=== PATIENT | male | born 1960 | race Caucasian/White ===

== ENCOUNTER 2018-05-15 04:46 | Inpatient (IN) | payer OTHER ==
[2018-05-14 13:34] LABS: BASOPHILS # (AUTO) 0.05 x10^3/uL (0-0.1); BASOPHILS % (AUTO) 1 % (0-1); EOSINOPHILS # (AUTO) 0.17 x10^3/uL (0-0.4); EOSINOPHILS % (AUTO) 2 % (1-7); LYMPHOCYTES % (AUTO) 21 % (22-44); MD NO; MEAN CORPUSCULAR HEMOGLOBIN 29.6 pg (27.5-34.5); MEAN CORPUSCULAR HGB CONC 34.1 g/dL (33.2-36.2); MEAN CORPUSCULAR VOLUME 86.7 fL (81-97); MEAN PLATELET VOLUME 8.6 fL (7.4-10.4); MONOCYTES # (AUTO) 0.59 x10^3/uL (0.2-0.8); MONOCYTES % (AUTO) 8 % (2-9); NEUTROPHILS # (AUTO) 5.18 x10^3/uL (1.8-6.8); NEUTROPHILS % (AUTO) 68 % (42-75); PLATELET COUNT 220 x10^3/uL (130-400); RED BLOOD COUNT 5.24 x10^6/uL (4.38-5.82); RED CELL DISTRIBUTION WIDTH 13.9 % (9.4-14.8)
[2018-05-14 13:44] LABS: INTERNATIONAL NORMALIZED RATIO 1.1 (0.93-1.1); PROTHROMBIN TIME 11.4 Seconds (9.6-11.5)
[2018-05-14 13:46] LABS: ALANINE AMINOTRANSFERASE 54 U/L (12-78); ALBUMIN 4.1 g/dL (3.4-5.0); ANION GAP 10 mmol/L (5-15); CALCIUM 9.1 mg/dL (8.5-10.1); CHLORIDE 105 mmol/L (98-107); CREATININE 1.03 mg/dL (0.7-1.3)
[2018-05-14 13:48] LABS: ALKALINE PHOSPHATASE 100 U/L (45-117); BILIRUBIN,TOTAL 0.5 mg/dL (0.2-1.0); TOTAL PROTEIN 8.7 g/dL (6.4-8.2)
[2018-05-14 14:11] LABS: HEMOGLOBIN A1C 6.6 % (4.2-6.3)
[2018-05-14 14:19] LABS: MICROSCOPIC NOT IND
[~2018-05-15] VITALS: Ht 175.3 cm; Wt 84.3 kg
[~2018-05-15 04:46] MED LIST: ASPI-496 PO; ATOR20TA PO; CHOL500015 PO; UBID100C24 PO
[2018-05-15] MEDS ORDERED: ALBUMIN HUMAN 5% 500 ML IV PRN (05:00)
[2018-05-15] MEDS ORDERED: CHLORHEXIDINE 15 ML UDC MM SCH (05:30)
[2018-05-15] MEDS ORDERED: INSULIN LISPRO 100 UNITS/ML, PEN SQ-INSULIN SCH (05:30)
[2018-05-15] MEDS ORDERED: DO NOT GIVE MC SCH (05:30)
[2018-05-15 05:44] VITALS: BP_SYST 127; BP_SYST 134; BP_DIAS 78; BP_DIAS 84
[2018-05-15] MEDS ORDERED: METOPROLOL TARTRATE 25 MG TABLET PO ONE (06:00)
[2018-05-15] MEDS ORDERED: PAPAVERINE 30 MG/ML, 2ML ONE (06:19)
[2018-05-15] MEDS ORDERED: HEPARIN 1,000 UNITS/ML, 10ML ONE (06:20)
[2018-05-15] MEDS ORDERED: FENTANYL PF 250 MCG/5ML ONE ×4 (06:35→06:36)
[2018-05-15] MEDS ORDERED: MIDAZOLAM 10MG/2 ML ONE (06:35)
[2018-05-15] MEDS ORDERED: ROCURONIUM 10MG/ML,5ML ONE ×2 (06:40)
[2018-05-15] MEDS ORDERED: PROPOFOL 10 MG/ML, 20ML ONE ×2 (06:40→06:41)
[2018-05-15] MEDS ORDERED: AMINOCAPROIC ACID 250 MG/ML, 20ML ONE (06:40)
[2018-05-15] MEDS ORDERED: VANCOMYCIN 1,200 MG in SODIUM CHLORIDE 0.9% 250 ML IV PRN (07:30)
[2018-05-15] MEDS ORDERED: DEXMEDETOMIDINE 200 MCG in SODIUM CHLORIDE 0.9% 48 ML IV SCH (07:30)
[2018-05-15] MEDS ORDERED: EPINEPHRINE 2 MG in SODIUM CHLORIDE 0.9% 248 ML IV SCH (07:30)
[2018-05-15] MEDS ORDERED: CEFUROXIME 1.5 GM in SODIUM CHLORIDE 0.9% 50 ML IVPB PRN (07:30)
[2018-05-15] MEDS ORDERED: REGULAR INSULIN 62.5 UNITS in SODIUM CHLORIDE 0.9% 249.375 ML IV PRN ×2 (07:30→10:07)
[2018-05-15] MEDS ORDERED: PHENYLEPHRINE 10 MG in SODIUM CHLORIDE 0.9% 249 ML IV PRN ×2 (07:30→10:07)
[2018-05-15] MEDS ORDERED: POTASSIUM CHLORIDE 80 MEQ, SODIUM BICARBONATE 8.4% 10 MEQ, MAGNESIUM SULFATE 0.5 GM, LI... IV PRN (07:30)
[2018-05-15] MEDS ORDERED: MANNITOL PMX 20% 500 ML IVPB PRN (07:30)
[2018-05-15] MEDS ORDERED: MUPIROCIN OINT 2%, 22GM TP SCH (09:00)
[2018-05-15] MEDS: DOCUSATE 100 MG CAPSULE PO SCH ×2 (09:00→20:17)
[2018-05-15] MEDS: SODIUM CHLORIDE FLUSH 10ML SYR IVF SCH ×3 (09:00→20:18)
[2018-05-15] MEDS ORDERED: SODIUM BICARBONATE 1 MEQ/ML, 50ML VIAL ONE (10:04)
[2018-05-15] MEDS ORDERED: LIDOCAINE 2% 100MG/5ML SYRINGE ONE (10:04)
[2018-05-15] MEDS ORDERED: ALBUMIN HUMAN 25% 50 ML ONE (10:04)
[2018-05-15] MEDS ORDERED: HEPARIN 1,000 UNITS/ML, 30ML ONE (10:04)
[2018-05-15] MEDS ORDERED: VASOPRESSIN 50 UNIT in SODIUM CHLORIDE 0.9% 247.5 ML IV PRN (10:07)
[2018-05-15] MEDS ORDERED: LACTATED RINGERS 1,000 ML IV SCH (10:07)
[2018-05-15] MEDS ORDERED: DEXMEDETOMIDINE 200 MCG in SODIUM CHLORIDE 0.9% 48 ML IV PRN (10:07)
[2018-05-15] MEDS ORDERED: SODIUM CHLORIDE 0.9% 1,000 ML IV PRN (10:07)
[2018-05-15] MEDS ORDERED: DOBUTAMINE 250 MG in SODIUM CHLORIDE 0.9% 230 ML IV PRN (10:07)
[2018-05-15] MEDS ORDERED: NITROGLYCERIN/D5W PMX 250 ML IV PRN (10:07)
[2018-05-15] MEDS ORDERED: morphine SULFATE 10 MG/ML, 1ML IVPush PRN (10:30)
[2018-05-15] MEDS ORDERED: BISACODYL 5 MG EC TABLET PO PRN (10:30)
[2018-05-15] MEDS ORDERED: DEXTROSE 50%, 50ML SYRINGE IVPush PRN (10:30)
[2018-05-15] MEDS ORDERED: INSULIN REGULAR 100 UNITS/ML, 3ML VIAL IVPush PRN (10:30)
[2018-05-15] MEDS ORDERED: SODIUM BICARB 8.4%, 50ML SYRINGE IV PRN (10:30)
[2018-05-15] MEDS ORDERED: ACETAMINOPHEN 325 MG TABLET PO PRN (10:30)
[2018-05-15] MEDS ORDERED: PROCHLORPERAZINE 5 MG/ML, 2ML IVPush PRN (10:30)
[2018-05-15] MEDS ORDERED: BISACODYL 10 MG SUPP PR PRN (10:30)
[2018-05-15] MEDS ORDERED: GLUCAGON 1 MG IM PRN (10:30)
[2018-05-15] MEDS ORDERED: ONDANSETRON 2MG/ML, 2ML IVPush PRN (10:30)
[2018-05-15] MEDS ORDERED: DEXTROSE 4 GM TAB.CHEW PO PRN (10:30)
[2018-05-15] MEDS ORDERED: EPINEPHRINE 2 MG in SODIUM CHLORIDE 0.9% 248 ML IV PRN (10:30)
[2018-05-15] MEDS ORDERED: LACTATED RINGERS 1,000 ML IV PRN (10:30)
[2018-05-15] MEDS ORDERED: MIDAZOLAM 1 MG/ML, 5ML IVPush PRN (10:30)
[2018-05-15] MEDS ORDERED: ACETAMINOPHEN 650 MG SUPP PR PRN (10:30)
[2018-05-15 10:37] LABS: GLUCOSE BY BLOOD GAS ANALYZER 118 mg/dL (70-110); HEMOGLOBIN BY BLOOD GAS ANALYZ 11.7 g/dL (14.0-18.0); POTASSIUM BY BLOOD GAS ANALYZR 3.8 mmol/L (3.6-5.5)
[2018-05-15] MEDS: KSCALE TO 4.5 IV SCH ×3 (10:59→22:36)
[2018-05-15] MEDS ORDERED: POTASSIUM CHLORIDE 30 MEQ in SODIUM CHLORIDE 0.9% 100 ML IV ONE (11:00)
[2018-05-15] MEDS: INSULIN LISPRO 100 UNITS/ML, PEN SQ-INSULIN SCH ×3 (11:00→20:19)
[2018-05-15] MEDS ORDERED: MORPHINE SULFATE 4 MG/ML, 1ML ONE (11:17)
[2018-05-15] MEDS: MAGNESIUM SULFATE 1 GM in SODIUM CHLORIDE 0.9% 50 ML IVPB SCH (11:51)
[2018-05-15] MEDS: HYDROcodone/APAP 10/325 MG TABLET PO PRN ×3 (14:32→23:46)
[2018-05-15] MEDS: CEFUROXIME 1.5 GM in SODIUM CHLORIDE 0.9% 50 ML IVPB SCH (17:23)
[2018-05-15] MEDS ORDERED: POTASSIUM CHLORIDE PMX 100 ML IV ONE (17:30)
[2018-05-15] MEDS: OXYcodone IR 5MG TABLET PO PRN (18:15)
[2018-05-15] MEDS ORDERED: VANCOMYCIN 1,200 MG in SODIUM CHLORIDE 0.9% 250 ML IVPB ONE (19:00)
[2018-05-15] MEDS: MUPIROCIN OINT 2%, 22GM NAS SCH (20:17)
[2018-05-16] MEDS: OXYcodone IR 5MG TABLET PO PRN ×5 (02:51→20:07)
[2018-05-16] MEDS: KSCALE TO 4.5 IV SCH (04:30)
[2018-05-16 05:26] VITALS: BP 111/68
[2018-05-16 05:49] LABS: ALBUMIN 3.5 g/dL (3.4-5.0); ANION GAP 8 mmol/L (5-15); CHLORIDE 110 mmol/L (98-107); CREATININE 0.69 mg/dL (0.7-1.3)
[2018-05-16 05:51] LABS: INTERNATIONAL NORMALIZED RATIO 1.22 (0.93-1.1); PROTHROMBIN TIME 12.6 Seconds (9.6-11.5)
[2018-05-16 06:03] LABS: BASOPHILS # (AUTO) 0.03 x10^3/uL (0-0.1); BASOPHILS % (AUTO) 0 % (0-1); EOSINOPHILS % (AUTO) 0 % (1-7); LYMPHOCYTES % (AUTO) 12 % (22-44); MD NO; MEAN CORPUSCULAR HEMOGLOBIN 29.3 pg (27.5-34.5); MEAN CORPUSCULAR HGB CONC 33.8 g/dL (33.2-36.2); MEAN CORPUSCULAR VOLUME 86.6 fL (81-97); MEAN PLATELET VOLUME 8.9 fL (7.4-10.4); MONOCYTES # (AUTO) 0.92 x10^3/uL (0.2-0.8); MONOCYTES % (AUTO) 9 % (2-9); NEUTROPHILS # (AUTO) 8.58 x10^3/uL (1.8-6.8); NEUTROPHILS % (AUTO) 79 % (42-75); PLATELET COUNT 140 x10^3/uL (130-400); RED BLOOD COUNT 3.81 x10^6/uL (4.38-5.82)
[2018-05-16] MEDS: CEFUROXIME 1.5 GM in SODIUM CHLORIDE 0.9% 50 ML IVPB SCH (06:14)
[2018-05-16] MEDS ORDERED: MAGNESIUM HYDROXIDE 8%, 30ML UDC PO PRN (08:00)
[2018-05-16] MEDS: DOCUSATE 100 MG CAPSULE PO SCH ×2 (08:11→20:07)
[2018-05-16] MEDS: CHLORHEXIDINE 15 ML UDC PO SCH (08:13)
[2018-05-16] MEDS: METOPROLOL TARTRATE 25 MG TABLET PO/NG SCH ×2 (08:14→20:10)
[2018-05-16] MEDS: SODIUM CHLORIDE FLUSH 10ML SYR IVF SCH ×5 (08:15→20:21)
[2018-05-16] MEDS: MUPIROCIN OINT 2%, 22GM NAS SCH ×2 (08:15→20:12)
[2018-05-16] MEDS: ASPIRIN 81 MG TABLET EC PO SCH (08:17)
[2018-05-16] MEDS: INSULIN LISPRO 100 UNITS/ML, PEN SQ-INSULIN SCH ×4 (08:32→20:15)
[2018-05-16] MEDS: MAGNESIUM SULFATE 1 GM in SODIUM CHLORIDE 0.9% 50 ML IVPB SCH (11:07)
[2018-05-16 18:57] VITALS: BP 144/79
[2018-05-16 19:55] VITALS: BP 123/72
[2018-05-16] MEDS: ATORVASTATIN 20 MG TABLET PO SCH (20:07)
[2018-05-17] MEDS: OXYcodone IR 5MG TABLET PO PRN ×5 (00:27→20:48)
[2018-05-17 00:42] VITALS: BP 105/62
[2018-05-17 05:00] LABS: ANION GAP 7 mmol/L (5-15); CALCIUM 7.9 mg/dL (8.5-10.1); CHLORIDE 106 mmol/L (98-107); CREATININE 0.78 mg/dL (0.7-1.3)
[2018-05-17 05:01] LABS: BASOPHILS # (AUTO) 0.03 x10^3/uL (0-0.1); BASOPHILS % (AUTO) 0 % (0-1); EOSINOPHILS # (AUTO) 0.03 x10^3/uL (0-0.4); EOSINOPHILS % (AUTO) 0 % (1-7); LYMPHOCYTES # (AUTO) 1.66 x10^3/uL (1-3.4); LYMPHOCYTES % (AUTO) 14 % (22-44); MD NO; MEAN CORPUSCULAR HEMOGLOBIN 29.9 pg (27.5-34.5); MEAN CORPUSCULAR HGB CONC 33.9 g/dL (33.2-36.2); MEAN CORPUSCULAR VOLUME 88.1 fL (81-97); MEAN PLATELET VOLUME 9.1 fL (7.4-10.4); MONOCYTES # (AUTO) 1.12 x10^3/uL (0.2-0.8); MONOCYTES % (AUTO) 10 % (2-9); NEUTROPHILS # (AUTO) 8.93 x10^3/uL (1.8-6.8); NEUTROPHILS % (AUTO) 76 % (42-75); PLATELET COUNT 124 x10^3/uL (130-400); RED BLOOD COUNT 3.67 x10^6/uL (4.38-5.82)
[2018-05-17 05:04] LABS: INTERNATIONAL NORMALIZED RATIO 1.18 (0.93-1.1); PROTHROMBIN TIME 12.2 Seconds (9.6-11.5)
[2018-05-17] MEDS: INSULIN LISPRO 100 UNITS/ML, PEN SQ-INSULIN SCH ×4 (07:00→20:47)
[2018-05-17 07:15] VITALS: BP 115/72
[2018-05-17] MEDS ORDERED: FUROSEMIDE 20 MG/2 ML IV SCH (09:00)
[2018-05-17] MEDS: POTASSIUM CHLORIDE 10 MEQ TABLET.ER PO SCH (10:35)
[2018-05-17] MEDS: FUROSEMIDE 20 MG TABLET PO SCH (10:35)
[2018-05-17] MEDS: METOPROLOL TARTRATE 25 MG TABLET PO/NG SCH ×2 (10:35→20:48)
[2018-05-17] MEDS: DOCUSATE 100 MG CAPSULE PO SCH ×2 (10:35→20:47)
[2018-05-17] MEDS: ASPIRIN 81 MG TABLET EC PO SCH (10:35)
[2018-05-17] MEDS: ENOXAPARIN 40 MG/0.4 ML SQ SCH (10:35)
[2018-05-17] MEDS: MUPIROCIN OINT 2%, 22GM NAS SCH ×2 (10:36→20:50)
[2018-05-17] MEDS: SODIUM CHLORIDE FLUSH 10ML SYR IVF SCH ×6 (10:36→20:52)
[2018-05-17] MEDS: CHLORHEXIDINE 15 ML UDC PO SCH (10:36)
[2018-05-17 14:05] VITALS: BP 106/68
[2018-05-17] MEDS: MAGNESIUM SULFATE 1 GM in SODIUM CHLORIDE 0.9% 50 ML IVPB SCH (17:41)
[2018-05-17 19:08] VITALS: BP 125/75
[2018-05-17] MEDS: ATORVASTATIN 20 MG TABLET PO SCH (20:48)
[2018-05-18] MEDS: OXYcodone IR 5MG TABLET PO PRN ×2 (00:03→04:11)
[2018-05-18 01:42] VITALS: BP 111/69
[2018-05-18 05:56] LABS: BASOPHILS # (AUTO) 0.02 x10^3/uL (0-0.1); BASOPHILS % (AUTO) 0 % (0-1); EOSINOPHILS # (AUTO) 0.14 x10^3/uL (0-0.4); EOSINOPHILS % (AUTO) 1 % (1-7); LYMPHOCYTES % (AUTO) 13 % (22-44); MD NO; MEAN CORPUSCULAR HEMOGLOBIN 29.3 pg (27.5-34.5); MEAN CORPUSCULAR HGB CONC 33.8 g/dL (33.2-36.2); MEAN CORPUSCULAR VOLUME 86.8 fL (81-97); MEAN PLATELET VOLUME 8.6 fL (7.4-10.4); MONOCYTES # (AUTO) 0.99 x10^3/uL (0.2-0.8); MONOCYTES % (AUTO) 10 % (2-9); NEUTROPHILS # (AUTO) 7.62 x10^3/uL (1.8-6.8); NEUTROPHILS % (AUTO) 76 % (42-75); PLATELET COUNT 150 x10^3/uL (130-400); RED BLOOD COUNT 3.81 x10^6/uL (4.38-5.82)
[2018-05-18 05:57] LABS: CHLORIDE 104 mmol/L (98-107)
[2018-05-18 06:08] LABS: ANION GAP 9 mmol/L (5-15); CALCIUM 8.2 mg/dL (8.5-10.1); CREATININE 0.79 mg/dL (0.7-1.3)
[2018-05-18 07:12] VITALS: BP 110/67
[2018-05-18] MEDS ORDERED: POTASSIUM CHLORIDE 20 MEQ TAB.ER.PRT PO ONE (07:30)
[2018-05-18] MEDS: INSULIN LISPRO 100 UNITS/ML, PEN SQ-INSULIN SCH (08:42)
[2018-05-18] MEDS: POTASSIUM CHLORIDE 10 MEQ TABLET.ER PO SCH ×2 (08:42)
[2018-05-18] MEDS: SODIUM CHLORIDE FLUSH 10ML SYR IVF SCH ×6 (08:43→21:09)
[2018-05-18] MEDS: MUPIROCIN OINT 2%, 22GM NAS SCH ×2 (08:43→19:44)
[2018-05-18] MEDS: CLOPIDOGREL 75 MG TABLET PO SCH (08:44)
[2018-05-18] MEDS: CHLORHEXIDINE 15 ML UDC PO SCH (08:44)
[2018-05-18] MEDS: METOPROLOL TARTRATE 25 MG TABLET PO/NG SCH ×2 (08:44→19:44)
[2018-05-18] MEDS: DOCUSATE 100 MG CAPSULE PO SCH ×2 (08:44→19:54)
[2018-05-18] MEDS: ENOXAPARIN 40 MG/0.4 ML SQ SCH (08:44)
[2018-05-18] MEDS: FUROSEMIDE 20 MG TABLET PO SCH (08:45)
[2018-05-18] MEDS: ASPIRIN 81 MG TABLET EC PO SCH (08:45)
[2018-05-18] MEDS: HYDROcodone/APAP 10/325 MG TABLET PO PRN (10:25)
[2018-05-18 13:24] VITALS: BP 121/75
[2018-05-18] MEDS: HYDROcodone/APAP 5/325 TABLET PO PRN ×2 (16:29→21:07)
[2018-05-18 18:28] VITALS: BP 122/76
[2018-05-18 19:31] VITALS: BP 130/83
[2018-05-18] MEDS: ATORVASTATIN 20 MG TABLET PO SCH (19:44)
[2018-05-18] MEDS ORDERED: CLOP75TA PO (22:26)
[2018-05-18] MEDS ORDERED: METO25TA35 PO/NG (22:26)
[2018-05-18] MEDS ORDERED: HYDR-3307 PO (22:26)
[2018-05-19] MEDS: OXYcodone IR 5MG TABLET PO PRN (00:18)
[2018-05-19 00:20] VITALS: BP 136/86
[2018-05-19] MEDS: HYDROcodone/APAP 5/325 TABLET PO PRN ×3 (04:38→09:01)
[2018-05-19 04:55] LABS: BASOPHILS # (AUTO) 0.06 x10^3/uL (0-0.1); BASOPHILS % (AUTO) 1 % (0-1); EOSINOPHILS % (AUTO) 3 % (1-7); LYMPHOCYTES % (AUTO) 19 % (22-44); MD NO; MEAN CORPUSCULAR HEMOGLOBIN 29.3 pg (27.5-34.5); MEAN CORPUSCULAR HGB CONC 33.7 g/dL (33.2-36.2); MEAN CORPUSCULAR VOLUME 86.8 fL (81-97); MEAN PLATELET VOLUME 8.8 fL (7.4-10.4); MONOCYTES # (AUTO) 0.93 x10^3/uL (0.2-0.8); MONOCYTES % (AUTO) 10 % (2-9); NEUTROPHILS # (AUTO) 6.03 x10^3/uL (1.8-6.8); NEUTROPHILS % (AUTO) 67 % (42-75); PLATELET COUNT 198 x10^3/uL (130-400); RED BLOOD COUNT 3.93 x10^6/uL (4.38-5.82); RED CELL DISTRIBUTION WIDTH 13.9 % (9.4-14.8)
[2018-05-19 05:11] LABS: ANION GAP 7 mmol/L (5-15); CALCIUM 8.3 mg/dL (8.5-10.1); CHLORIDE 104 mmol/L (98-107); CREATININE 0.73 mg/dL (0.7-1.3)
[2018-05-19 07:49] VITALS: BP 136/80
[2018-05-19] MEDS: SODIUM CHLORIDE FLUSH 10ML SYR IVF SCH ×3 (08:35)
[2018-05-19] MEDS: ASPIRIN 81 MG TABLET EC PO SCH (08:43)
[2018-05-19] MEDS: CHLORHEXIDINE 15 ML UDC PO SCH (08:43)
[2018-05-19] MEDS: CLOPIDOGREL 75 MG TABLET PO SCH (08:43)
[2018-05-19] MEDS: METOPROLOL TARTRATE 25 MG TABLET PO/NG SCH (08:43)
[2018-05-19] MEDS: POTASSIUM CHLORIDE 10 MEQ TABLET.ER PO SCH ×2 (08:43)
[2018-05-19] MEDS: ENOXAPARIN 40 MG/0.4 ML SQ SCH (08:44)
[2018-05-19] MEDS: MUPIROCIN OINT 2%, 22GM NAS SCH (08:44)
[2018-05-19] MEDS: DOCUSATE 100 MG CAPSULE PO SCH (08:51)
[2018-05-19] MEDS: FUROSEMIDE 20 MG TABLET PO SCH (08:56)
== END 2018-05-19 10:30 | disposition home health service (06) | DRG 236 ==
LOC: 5SO 04:46 → CSU 10:18 → 5SO 05-16 18:46
PROVIDERS: ADMIT Thoracic Surgery (Cardiothoracic Vascular Surgery); ATTEND Thoracic Surgery (Cardiothoracic Vascular Surgery)
PROC: 02100Z9 Bypass Coronary Artery, One Artery from Left Internal Mammary, Open Approach (ICD-10-PCS; 2018-05-15)
PROC: 021009W Bypass Coronary Artery, One Artery from Aorta with Autologous Venous Tissue, Open Approach (ICD-10-PCS; 2018-05-15)
PROC: 06BP4ZZ Excision of Right Saphenous Vein, Percutaneous Endoscopic Approach (ICD-10-PCS; 2018-05-15)
PROC: 5A1221Z Performance of Cardiac Output, Continuous (ICD-10-PCS; 2018-05-15)
PROC: 05HY33Z Insertion of Infusion Device into Upper Vein, Percutaneous Approach (ICD-10-PCS; 2018-05-15)
PROC: 5A1223Z Performance of Cardiac Pacing, Continuous (ICD-10-PCS; 2018-05-15)
PROC: 5A09357 Assistance with Respiratory Ventilation, Less than 24 Consecutive Hours, Continuous Positive Airway Pressure (ICD-10-PCS; principal; 2018-05-18)
DX: I25.708 Atherosclerosis of coronary artery bypass graft(s), unspecified, with other forms of angina pectoris (principal); E78.5 Hyperlipidemia, unspecified; E78.00 Pure hypercholesterolemia, unspecified; Z82.49 Family history of ischemic heart disease and other diseases of the circulatory system; Z98.52 Vasectomy status; R06.89 Other abnormalities of breathing
CPT/HCPCS: 36415; 36600; S0017; 71045; 71046; 80048; 80053; 81003; 82040; 82330; 82800; 82803; 82810; 82947; 82962; 83036; 83735; 84132; 84295; 85014; 85018; 85025; 85049; 85347; 85610; 85730; 86850; 86900; 86923; 93005; 93312; 93321; 93325; 94002; 94150; G0378; J0697; J1644; J1650; J1815; J2250; J2704; J3010; J3370; J3475; J3480; J3490; P9045; P9047; C1751; C1760; J0171; J0780; J2270; J2370; J2440; J7050